=== PATIENT | female | born 1955 | race Asian ===

== ENCOUNTER 2019-03-26 12:56 | Day surgery (SDC) | payer MEDICARE, OTHER | END 2019-03-26 15:43 | disposition home or self-care (01) | LOC: GIL 12:56 | DX: Z12.11 Encounter for screening for malignant neoplasm of colon (principal); K62.1 Rectal polyp; K57.30 Diverticulosis of large intestine without perforation or abscess without bleeding; J44.9 Chronic obstructive pulmonary disease, unspecified; Z87.891 Personal history of nicotine dependence | CPT/HCPCS: 45380; 88305 ==